=== PATIENT | female | born 1980 | race African-American/Black ===

== ENCOUNTER 2020-02-25 10:23 | Emergency (ER) | payer SELFPAY ==
[~2020-02-25] VITALS: Ht 170.2 cm; Wt 68.0 kg
[2020-02-25] MEDS ORDERED: SODIUM CHLORIDE 0.9% 1,000 ML IV ONE (10:45)
[2020-02-25 13:38] VITALS: BP 130/68
== END 2020-02-25 14:00 | disposition home or self-care (01) ==
LOC: ER 10:38
DX: U07.1 COVID-19 (principal); F41.1 Generalized anxiety disorder; R03.0 Elevated blood-pressure reading, without diagnosis of hypertension
CPT/HCPCS: 71045; 99283; J7030